=== PATIENT | female | born 2000 | race Caucasian/White ===

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

== ENCOUNTER 2021-01-04 17:55 | Emergency (ER) | payer MEDICAID, OTHER ==
[~2021-01-04] VITALS: Ht 165.1 cm; Wt 70.5 kg
[~2021-01-04 17:55] MED LIST: GLIP5 PO; SERT-162 PO
[2021-01-04 19:00] VITALS: BP 132/81
== END 2021-01-04 19:31 | disposition home or self-care (01) ==
LOC: EMS 17:57
DX: L73.9 Follicular disorder, unspecified (principal); E11.9 Type 2 diabetes mellitus without complications; F32.9 Major depressive disorder, single episode, unspecified
CPT/HCPCS: 99283; Z7502